=== PATIENT | female | born 1990 | race Caucasian/White ===

== ENCOUNTER 2021-03-27 18:10 | Inpatient (IN) ==
[2021-03-28] MEDS ORDERED: LORazepam 2 MG/1 ML VIAL IM STA (02:06)
[2021-03-28] MEDS ORDERED: HALOPERIDOL 5 MG/ML AMP IM STA (02:06)
[2021-03-28] MEDS ORDERED: SODIUM CHLORIDE 0.9% 1,000 ML IV STA ×2 (02:10→04:21)
[2021-03-28 03:59] LABS: Basophils % 0.5 % (0.0-0.8); Eosinophils # 0.1 10*3/uL (0.0-0.87); Eosinophils % 0.6 % (0.00-10.9); Hematocrit 32.8 VOL% (35.7-47.0); Hemoglobin 11.2 GM/DL (12.0-16.0); Immature Granulocytes % 0.2 %; Immature Granulocytes Absolute 0.02 #; Lymphocytes # 2.1 10*3/uL (1.4-4.0); Mean Corpuscular HGB Conc 34.1 GM/DL (32-36); Mean Corpuscular Volume 86.5 FL (87-102); Mean Platelet Volume 10.2 FL (9.6-12.0); Monocytes % 9.2 % (1.7-12.7); Neutrophils % 63.5 % (38.7-73.9); Platelet Count 277 T/CUMM (130-400); Red Blood Count 3.79 MC/CUMM (3.8-5.5); Red Cell Distribution Width 13.1 % (9.3-17.3); White Blood Count 8.1 T/CUMM (4-12)
[2021-03-28 04:15] LABS: Bilirubin,Urine Negative (Negative); Blood, Urine Negative (Negative); Glucose,Urine (UA) Negative (Negative); Ketones,Urine 80 mg/dL (Negative); Mucus,Urine Many /LPF (Occasional); Nitrite,Urine Negative (Negative); Protein,Urine 30 MG/DL; RBC,Urine 2 /HPF (0-4); Squamous Epithelial Cell,Urine Occasional /HPF (0-10); Urine Appearance Slightly Hazy (Clear); Urine Color Yellow (Yellow); Urine Specific Gravity 1.023 (1.001-1.035); Urine Urobilinogen < 2.0 EU/DL (<2.0)
[2021-03-28] MEDS ORDERED: cefTRIAXone 1,000 MG in SODIUM CHLORIDE 0.9% 100 ML IV STA (04:19)
[2021-03-28 04:26] LABS: Lactic Acid 0.8 MMOL/L (0.4-2.0)
[2021-03-28 04:33] LABS: Barbiturates Screen,Urine Negative (Negative); Benzodiazepines Screen,Urine Positive (Negative); Cannabinoid Screen,Urine Positive (Negative); Opiate Screen,Urine Negative (Negative); Phencyclidine Screen,Urine Negative (Negative)
[2021-03-28 05:05] LABS: Alanine Aminotransferase 72 U/L (13-56); Albumin 3.9 G/DL (3.4-5.0); Alkaline Phosphatase 54 U/L (45-117); Aspartate Amino Transferase 199 U/L (0-37); Blood Urea Nitrogen 16 MG/DL (7-18); CKMB % 1.3 %; Calcium 8.7 MG/DL (8.5-10.1); Carbon Dioxide 22 MMOL/L (21-32); Estimated Glom Filtration Rate 114 ML/MIN; Glucose 61 MG/DL (74-106); Osmolality,Calculated 268.1 MOS/KG (273-304); Potassium 2.9 MMOL/L (3.5-5.1); Sodium 135 MMOL/L (136-145); Total Protein 6.9 G/DL (6.4-8.2)
[2021-03-28] MEDS ORDERED: GLUCAGON 1 MG VIAL IM PRN (05:11)
[2021-03-28] MEDS ORDERED: MAGNESIUM SULF RIDER 4 GM/100 ML PREMIX IV PRN (05:11)
[2021-03-28] MEDS ORDERED: ACETAMINOPHEN 325 MG TABLET PO PRN (05:11)
[2021-03-28] MEDS ORDERED: MAGNESIUM SULF RIDER 2 GM/50 ML PREMIX IV PRN (05:11)
[2021-03-28] MEDS ORDERED: POTASSIUM CHLORIDE 20 MEQ TABLET PO PRN (05:11)
[2021-03-28] MEDS ORDERED: ONDANSETRON 4 MG/2 ML VIAL IV PRN (05:11)
[2021-03-28] MEDS ORDERED: DEXTROSE 50% 25 GM/50 ML SYRINGE IV PRN (05:24)
[2021-03-28 06:00] LABS: INR 1.3; PT Patient Result 13.9 SECS (10.5-12.0); Partial Thromboplastin Time 34.7 SECS (23.8-32.1)
[2021-03-28] MEDS: ENOXAPARIN 40 MG/0.4 ML SYRINGE SUBCUT SCH (06:00)
[2021-03-28] MEDS: DEXTROSE 5% NACL 0.9% 1,000 ML IV SCH ×3 (06:16→21:55)
[2021-03-28 06:53] LABS: Hepatitis B Core IgM Quant 0.14 Index; Hepatitis B Surface Ag Quant < 0.10 Index; Hepatitis B Surface Ag Result Non-Reactive (NonReactive); Hepatitis C Virus Ab Quant 0.02 Index; Hepatitis C Virus Ab Result Non-Reactive (NonReactive)
[2021-03-28] MEDS: OLANZapine 5 MG TABLET PO SCH (09:45)
[2021-03-28] MEDS: PANTOPRAZOLE 40 MG TABLET PO SCH (09:45)
[2021-03-28] MEDS: POTASSIUM CHLORIDE RIDER 10 MEQ/100 ML PREMIX IV PRN ×5 (15:07→23:00)
[2021-03-29] MEDS: cefTRIAXone 1,000 MG in SODIUM CHLORIDE 0.9% 100 ML IV SCH (05:09)
[2021-03-29] MEDS: ENOXAPARIN 40 MG/0.4 ML SYRINGE SUBCUT SCH (05:11)
[2021-03-29 05:29] LABS: Basophils % 0.5 % (0.0-0.8); Eosinophils # 0.1 10*3/uL (0.0-0.87); Eosinophils % 1.1 % (0.00-10.9); Hematocrit 34.2 VOL% (35.7-47.0); Hemoglobin 11.2 GM/DL (12.0-16.0); Immature Granulocytes % 0.2 %; Immature Granulocytes Absolute 0.02 #; Lymphocytes # 2.3 10*3/uL (1.4-4.0); Lymphocytes % 26.2 % (21.3-54.2); Mean Corpuscular HGB Conc 32.7 GM/DL (32-36); Mean Corpuscular Volume 90.5 FL (87-102); Mean Platelet Volume 10.3 FL (9.6-12.0); Monocytes % 8.3 % (1.7-12.7); Neutrophils % 63.7 % (38.7-73.9); Platelet Count 274 T/CUMM (130-400); Red Blood Count 3.78 MC/CUMM (3.8-5.5); Red Cell Distribution Width 13.7 % (9.3-17.3); White Blood Count 8.7 T/CUMM (4-12)
[2021-03-29 05:47] LABS: Albumin 3.1 G/DL (3.4-5.0); Bilirubin,Total 0.6 MG/DL (0.20-1.00); Calcium 7.9 MG/DL (8.5-10.1); Osmolality,Calculated 271.5 MOS/KG (273-304); Potassium 3.6 MMOL/L (3.5-5.1); Total Protein 5.9 G/DL (6.4-8.2)
[2021-03-29] MEDS: PANTOPRAZOLE 40 MG TABLET PO SCH (08:35)
[2021-03-29] MEDS: OLANZapine 5 MG TABLET PO SCH (08:35)
[2021-03-29 11:43] LABS: Calcium 7.5 MG/DL (8.5-10.1); Osmolality,Calculated 276.5 MOS/KG (273-304); Potassium 3.7 MMOL/L (3.5-5.1)
[2021-03-29] MEDS: LACTULOSE 20 GM/30 ML UDCUP PO SCH ×2 (13:52→23:14)
[2021-03-29 16:57] LABS: Calcium 8.2 MG/DL (8.5-10.1); Osmolality,Calculated 279.1 MOS/KG (273-304); Potassium 3.6 MMOL/L (3.5-5.1)
[2021-03-29] MEDS: DEXTROSE 5% NACL 0.9% 1,000 ML IV SCH ×2 (19:49)
[2021-03-29 22:36] LABS: Calcium 7.9 MG/DL (8.5-10.1); Potassium 3.4 MMOL/L (3.5-5.1)
[2021-03-30 05:32] LABS: Basophils % 0.6 % (0.0-0.8); Eosinophils # 0.2 10*3/uL (0.0-0.87); Eosinophils % 3.8 % (0.00-10.9); Hematocrit 33.1 VOL% (35.7-47.0); Hemoglobin 10.8 GM/DL (12.0-16.0); Immature Granulocytes % 0.2 %; Immature Granulocytes Absolute 0.01 #; Lymphocytes # 2.2 10*3/uL (1.4-4.0); Lymphocytes % 43.2 % (21.3-54.2); Mean Corpuscular HGB Conc 32.6 GM/DL (32-36); Mean Corpuscular Volume 90.4 FL (87-102); Mean Platelet Volume 10.1 FL (9.6-12.0); Monocytes % 12.4 % (1.7-12.7); Neutrophils % 39.8 % (38.7-73.9); Platelet Count 254 T/CUMM (130-400); Red Blood Count 3.66 MC/CUMM (3.8-5.5); Red Cell Distribution Width 13.6 % (9.3-17.3)
[2021-03-30 06:02] LABS: Albumin 2.8 G/DL (3.4-5.0); Bilirubin,Total 0.5 MG/DL (0.20-1.00); Calcium 7.7 MG/DL (8.5-10.1); Osmolality,Calculated 277.3 MOS/KG (273-304); Potassium 3.2 MMOL/L (3.5-5.1); Total Protein 5.6 G/DL (6.4-8.2)
[2021-03-30] MEDS: ENOXAPARIN 40 MG/0.4 ML SYRINGE SUBCUT SCH (06:05)
[2021-03-30 06:08] LABS: Anisocytosis 1+; Platelet Estimate Normal
[2021-03-30 06:09] LABS: Macrocytosis Slight
[2021-03-30 06:10] LABS: Calcium 7.6 MG/DL (8.5-10.1); Osmolality,Calculated 282.8 MOS/KG (273-304); Potassium 3.3 MMOL/L (3.5-5.1)
[2021-03-30] MEDS: LACTULOSE 20 GM/30 ML UDCUP PO SCH ×2 (09:36→21:09)
[2021-03-30] MEDS: PANTOPRAZOLE 40 MG TABLET PO SCH (09:36)
[2021-03-30] MEDS: cefTRIAXone 1,000 MG in SODIUM CHLORIDE 0.9% 100 ML IV SCH (09:36)
[2021-03-30] MEDS: OLANZapine 5 MG TABLET PO SCH (09:36)
[2021-03-30] MEDS: DEXTROSE 5% NACL 0.9% 1,000 ML IV SCH ×2 (09:37→09:38)
[2021-03-31 05:39] LABS: Basophils % 0.9 % (0.0-0.8); Eosinophils # 0.3 10*3/uL (0.0-0.87); Eosinophils % 6.8 % (0.00-10.9); Hematocrit 33.6 VOL% (35.7-47.0); Hemoglobin 10.8 GM/DL (12.0-16.0); Immature Granulocytes % 0.2 %; Immature Granulocytes Absolute 0.01 #; Lymphocytes # 2.2 10*3/uL (1.4-4.0); Lymphocytes % 49.3 % (21.3-54.2); Mean Corpuscular HGB Conc 32.1 GM/DL (32-36); Mean Corpuscular Volume 91.8 FL (87-102); Mean Platelet Volume 10.3 FL (9.6-12.0); Monocytes % 13.5 % (1.7-12.7); Neutrophils % 29.3 % (38.7-73.9); Platelet Count 245 T/CUMM (130-400); Red Blood Count 3.66 MC/CUMM (3.8-5.5); Red Cell Distribution Width 13.6 % (9.3-17.3); White Blood Count 4.4 T/CUMM (4-12)
[2021-03-31 06:08] LABS: Alanine Aminotransferase 49 U/L (13-56); Albumin 2.7 G/DL (3.4-5.0); Alkaline Phosphatase 44 U/L (45-117); Aspartate Amino Transferase 60 U/L (0-37); Bilirubin,Total < 0.39 MG/DL (0.20-1.00); Blood Urea Nitrogen 4 MG/DL (7-18); Calcium 8.4 MG/DL (8.5-10.1); Carbon Dioxide 29 MMOL/L (21-32); Estimated Glom Filtration Rate 120 ML/MIN; Glucose 83 MG/DL (74-106); Osmolality,Calculated 278.1 MOS/KG (273-304); Potassium 4.2 MMOL/L (3.5-5.1); Sodium 142 MMOL/L (136-145); Total Protein 5.8 G/DL (6.4-8.2)
[2021-03-31] MEDS: DEXTROSE 5% NACL 0.9% 1,000 ML IV SCH ×3 (06:12→14:41)
[2021-03-31] MEDS: ENOXAPARIN 40 MG/0.4 ML SYRINGE SUBCUT SCH ×2 (06:12→06:20)
[2021-03-31 06:39] LABS: Eosinophils 3 % (0-10); Lymphocytes 48 % (20-55); Segmented Neutrophils 38 % (50-85); Total Cells Counted 100
[2021-03-31 06:40] LABS: Burr Cells Slight; Ovalocytes Slight; Platelet Estimate Normal
[2021-03-31] MEDS: LACTULOSE 20 GM/30 ML UDCUP PO SCH ×3 (08:13→20:55)
[2021-03-31] MEDS: PANTOPRAZOLE 40 MG TABLET PO SCH (08:13)
[2021-03-31] MEDS: OLANZapine 5 MG TABLET PO SCH (08:13)
[2021-03-31] MEDS: cefTRIAXone 1,000 MG in SODIUM CHLORIDE 0.9% 100 ML IV SCH (08:15)
[2021-03-31] MEDS: LORazepam 2 MG/1 ML VIAL IV PRN (16:30)
[2021-03-31] MEDS: ESCITALOPRAM 10 MG TABLET PO SCH (20:55)
[2021-04-01] MEDS: DEXTROSE 5% NACL 0.9% 1,000 ML IV SCH ×4 (03:01→20:14)
[2021-04-01 05:49] LABS: Basophils % 0.6 % (0.0-0.8); Eosinophils # 0.3 10*3/uL (0.0-0.87); Eosinophils % 6.4 % (0.00-10.9); Hematocrit 31.5 VOL% (35.7-47.0); Hemoglobin 10.1 GM/DL (12.0-16.0); Immature Granulocytes % 0.2 %; Immature Granulocytes Absolute 0.01 #; Lymphocytes # 1.7 10*3/uL (1.4-4.0); Lymphocytes % 33.7 % (21.3-54.2); Mean Corpuscular HGB Conc 32.1 GM/DL (32-36); Mean Corpuscular Volume 91.6 FL (87-102); Mean Platelet Volume 10.6 FL (9.6-12.0); Monocytes % 9.8 % (1.7-12.7); Neutrophils % 49.3 % (38.7-73.9); Platelet Count 229 T/CUMM (130-400); Red Blood Count 3.44 MC/CUMM (3.8-5.5); Red Cell Distribution Width 13.8 % (9.3-17.3)
[2021-04-01 06:10] LABS: Alanine Aminotransferase 43 U/L (13-56); Albumin 2.5 G/DL (3.4-5.0); Alkaline Phosphatase 44 U/L (45-117); Aspartate Amino Transferase 39 U/L (0-37); Bilirubin,Total < 0.39 MG/DL (0.20-1.00); Blood Urea Nitrogen 4 MG/DL (7-18); Calcium 7.9 MG/DL (8.5-10.1); Carbon Dioxide 27 MMOL/L (21-32); Estimated Glom Filtration Rate 120 ML/MIN; Glucose 94 MG/DL (74-106); Osmolality,Calculated 279.1 MOS/KG (273-304); Potassium 3.5 MMOL/L (3.5-5.1); Sodium 142 MMOL/L (136-145); Total Protein 5.4 G/DL (6.4-8.2)
[2021-04-01] MEDS: ENOXAPARIN 40 MG/0.4 ML SYRINGE SUBCUT SCH (06:27)
[2021-04-01] MEDS: OLANZapine 5 MG TABLET PO SCH (09:47)
[2021-04-01] MEDS: PANTOPRAZOLE 40 MG TABLET PO SCH (09:47)
[2021-04-01] MEDS: LACTULOSE 20 GM/30 ML UDCUP PO SCH ×3 (09:47→20:10)
[2021-04-01] MEDS: cefTRIAXone 1,000 MG in SODIUM CHLORIDE 0.9% 100 ML IV SCH (09:53)
[2021-04-01] MEDS: ESCITALOPRAM 10 MG TABLET PO SCH (20:11)
[2021-04-02] MEDS: ENOXAPARIN 40 MG/0.4 ML SYRINGE SUBCUT SCH (04:40)
[2021-04-02] MEDS: DEXTROSE 5% NACL 0.9% 1,000 ML IV SCH ×2 (04:44→12:56)
[2021-04-02 06:19] LABS: Basophils # 0.1 10*3/uL (0.0-0.2); Basophils % 1.1 % (0.0-0.8); Eosinophils # 0.3 10*3/uL (0.0-0.87); Eosinophils % 6.9 % (0.00-10.9); Hematocrit 32.7 VOL% (35.7-47.0); Hemoglobin 10.5 GM/DL (12.0-16.0); Immature Granulocytes % 0.2 %; Immature Granulocytes Absolute 0.01 #; Lymphocytes # 1.7 10*3/uL (1.4-4.0); Lymphocytes % 34.9 % (21.3-54.2); Mean Corpuscular HGB Conc 32.1 GM/DL (32-36); Mean Corpuscular Volume 91.3 FL (87-102); Mean Platelet Volume 10.5 FL (9.6-12.0); Monocytes % 10.5 % (1.7-12.7); Neutrophils % 46.4 % (38.7-73.9); Platelet Count 244 T/CUMM (130-400); Red Blood Count 3.58 MC/CUMM (3.8-5.5); Red Cell Distribution Width 13.7 % (9.3-17.3); White Blood Count 4.8 T/CUMM (4-12)
[2021-04-02 06:50] LABS: Alanine Aminotransferase 54 U/L (13-56); Albumin 2.8 G/DL (3.4-5.0); Alkaline Phosphatase 51 U/L (45-117); Aspartate Amino Transferase 44 U/L (0-37); Bilirubin,Total < 0.39 MG/DL (0.20-1.00); Blood Urea Nitrogen 5 MG/DL (7-18); Calcium 8.1 MG/DL (8.5-10.1); Carbon Dioxide 29 MMOL/L (21-32); Estimated Glom Filtration Rate 120 ML/MIN; Glucose 99 MG/DL (74-106); Osmolality,Calculated 279.1 MOS/KG (273-304); Potassium 3.6 MMOL/L (3.5-5.1); Sodium 142 MMOL/L (136-145); Total Protein 6.1 G/DL (6.4-8.2)
[2021-04-02] MEDS: CEFUROXIME 500 MG TABLET PO SCH ×2 (08:33→21:31)
[2021-04-02] MEDS: PANTOPRAZOLE 40 MG TABLET PO SCH (08:33)
[2021-04-02] MEDS: LACTULOSE 20 GM/30 ML UDCUP PO SCH ×3 (08:33→21:31)
[2021-04-02] MEDS: LORazepam 2 MG/1 ML VIAL IV PRN (08:33)
[2021-04-02] MEDS: OLANZapine 5 MG TABLET PO SCH (08:33)
[2021-04-02] MEDS: ESCITALOPRAM 10 MG TABLET PO SCH (21:31)
[2021-04-03] MEDS: ENOXAPARIN 40 MG/0.4 ML SYRINGE SUBCUT SCH (05:19)
[2021-04-03 05:34] LABS: Basophils % 0.8 % (0.0-0.8); Eosinophils # 0.4 10*3/uL (0.0-0.87); Eosinophils % 7.5 % (0.00-10.9); Hemoglobin 11.7 GM/DL (12.0-16.0); Immature Granulocytes % 0.2 %; Immature Granulocytes Absolute 0.01 #; Lymphocytes # 2.5 10*3/uL (1.4-4.0); Lymphocytes % 50.9 % (21.3-54.2); Mean Corpuscular HGB Conc 32.5 GM/DL (32-36); Mean Corpuscular Volume 92.8 FL (87-102); Mean Platelet Volume 10.3 FL (9.6-12.0); Monocytes % 8.7 % (1.7-12.7); Neutrophils % 31.9 % (38.7-73.9); Platelet Count 263 T/CUMM (130-400); Red Blood Count 3.88 MC/CUMM (3.8-5.5); Red Cell Distribution Width 13.4 % (9.3-17.3)
[2021-04-03 05:56] LABS: Eosinophils 10 % (0-10); Hypochromia Slight; Lymphocytes 53 % (20-55); Microcytosis Slight; Platelet Estimate Adequate; Segmented Neutrophils 31 % (50-85); Total Cells Counted 100
[2021-04-03 05:59] LABS: Alanine Aminotransferase 54 U/L (13-56); Albumin 2.8 G/DL (3.4-5.0); Alkaline Phosphatase 53 U/L (45-117); Aspartate Amino Transferase 32 U/L (0-37); Bilirubin,Total < 0.39 MG/DL (0.20-1.00); Blood Urea Nitrogen 10 MG/DL (7-18); Calcium 7.9 MG/DL (8.5-10.1); Carbon Dioxide 28 MMOL/L (21-32); Estimated Glom Filtration Rate 114 ML/MIN; Glucose 89 MG/DL (74-106); Osmolality,Calculated 278.3 MOS/KG (273-304); Potassium 3.8 MMOL/L (3.5-5.1); Sodium 141 MMOL/L (136-145); Total Protein 6.2 G/DL (6.4-8.2)
[2021-04-03] MEDS: PANTOPRAZOLE 40 MG TABLET PO SCH (08:22)
[2021-04-03] MEDS: LACTULOSE 20 GM/30 ML UDCUP PO SCH (08:22)
[2021-04-03] MEDS: OLANZapine 5 MG TABLET PO SCH (08:23)
[2021-04-03] MEDS: CEFUROXIME 500 MG TABLET PO SCH (08:23)
[2021-04-03] MEDS: LORazepam 2 MG/1 ML VIAL IV PRN (09:36)
[2021-04-03 11:57] VITALS: BP 116/74
== END 2021-04-03 13:05 | disposition home or self-care (01) | DRG 896 ==
LOC: EDUNIT# → EDBD → N.ED 18:10 → N.EDINP 18:10 → SUATTDRO 03-28 05:11 → N.EDINP 03-28 12:20 → N.5E 03-28 12:46 → SUATTDRO 03-29 09:56
PROVIDERS: ADMIT Internal Medicine; ATTEND Internal Medicine